=== PATIENT | female | born 1965 | race Caucasian/White ===

== ENCOUNTER 2020-05-06 07:58 | Outpatient (CLI) | payer OTHER | END 2020-05-06 08:09 | disposition home or self-care (01) | LOC: TOM 07:58 | PROVIDERS: ATTEND Internal Medicine Gastroenterology | DX: K57.92 Diverticulitis of intestine, part unspecified, without perforation or abscess without bleeding (principal); K56.600 Partial intestinal obstruction, unspecified as to cause ==